=== PATIENT | female | born 1995 | race Caucasian/White ===

== ENCOUNTER 2017-10-21 16:27 | Emergency (ER) | payer MEDICAID ==
[2017-10-21] MEDS ORDERED: ASPIRIN 81 MG CHEWABLE TAB PO ONE (17:13)
[2017-10-21] MEDS ORDERED: IPRATROPIUM/ALBUTEROL 3 ML DEYVIAL IH ONE (17:13)
--- NOTE | 2017-10-21 17:18 | EDPHY ---
H & P Stated Complaint: cough SOB for 3 days-15 weeks Time Seen by Provider: 10/21/17 17:08 HPI/ROS: CHIEF COMPLAINT: Shortness of breath, cough HISTORY OF PRESENT ILLNESS: The patient is a 22-year-old obese homeless female with a history of asthma who comes to the emergency department complaining of shortness of breath and cough. She is wheezing. She has used her albuterol inhaler twice today. She used just before coming. She has been afebrile. Her cough has been nonproductive. She has also 15 weeks . She denies chest pain. No leg pain or swelling. Her friend who is with her states that she was sick a few weeks ago but her symptoms have improved. The patient's symptoms began about 2 weeks ago. Her albuterol has been helping but she is running out. Severity: Moderate Modifying factors: The medications REVIEW OF SYSTEMS: Constitutional: denies: chills, fever, recent illness, recent injury EENTM: denies: blurred vision, double vision, nose congestion Respiratory: See HPI Cardiac: denies: chest pain, irregular heart rate, lightheadedness, palpitations Gastrointestinal/Abdominal: denies: abdominal pain, diarrhea, nausea, vomiting, blood streaked stools Genitourinary: denies: dysuria, frequency, hematuria, pain Musculoskeletal: denies: joint pain, muscle pain Skin: denies: lesions, rash, jaundice, bruising Neurological: denies: headache, numbness, paresthesia, tingling, dizziness, weakness Hematologic/Lymphatic: denies: blood clots, easy bleeding, easy bruising Immunologic/allergic: denies: HIV/AIDS, transplant 10 systems reviewed and negative except as noted EXAM: GENERAL: Well-appearing, well-nourished and in no acute distress. HEAD: Atraumatic, normocephalic. EYES: Pupils equal round and reactive to light, extraocular movements intact, sclera anicteric, conjunctiva are normal. ENT: TMs normal, nares patent, oropharynx clear without exudates. Moist mucous membranes. NECK: Normal range of motion, supple without lymphadenopathy or JVD. LUNGS: Bilateral expiratory wheezes, no rhonchi. HEART: Regular rate and rhythm without murmurs, rubs or gallops. ABDOMEN: Soft, nontender, normoactive bowel sounds. No guarding, no rebound. No masses appreciated. BACK: No CVA tenderness, no spinal tenderness, step-offs or deformities EXTREMITIES: Normal range of motion, no pitting or edema. No clubbing or cyanosis. NEUROLOGICAL: Cranial nerves II through XII grossly intact. Normal speech, normal gait. 5/5 strength, normal movement in all extremities, normal sensation , normal reflexes PSYCH: Normal mood, normal affect. SKIN: Warm, dry, normal turgor, no visible rashes or lesions. Source: Patient Exam Limitations: No limitations - Personal History LMP (Females 10-55): - Medical/Surgical History Hx Asthma: Yes Hx Chronic Respiratory Disease: No Hx Diabetes: No Hx Cardiac Disease: No Hx Renal Disease: No Hx Cirrhosis: No Hx Alcoholism: No Hx HIV/AIDS: No Hx Splenectomy or Spleen Trauma: No Other PMH: asthma - Family History Significant Family History: No pertinent family hx - Social History Smoking Status: Current some day smoker Alcohol Use: Sober Drug Use: None Constitutional: Initial Vital Signs Temperature (C) 36.8 C 10/21/17 16:29 Heart Rate 130 H 10/21/17 16:29 Respiratory Rate 20 10/21/17 16:29 Blood Pressure 137/90 H 10/21/17 16:29 O2 Sat (%) 94 10/21/17 16:29 O2 Delivery Mode Room Air Allergies/Adverse Reactions: No Known Allergies Allergy (Verified 10/21/17 16:29) Home Medications: Medication Instructions Recorded ALBUTEROL SULFATE 10/21/17 Albuterol [Proventil Inhaler] 1 - 2 puffs IH Q4H #1 mdi 10/21/17 Medical Decision Making - Diagnostics Imaging Results: Imaging Impressions Chest X-Ray 10/21/17 17:13 Impression: No definite pneumonia. Imaging: Discussed imaging studies w/ plug cutting machine operator Radiologist ED Course/Re-evaluation: 6:10 p.m. the patient received refused her chest x-ray. Her symptoms have improved with albuterol. I have started her on steroids. I suspect that this is a bronchitis on top for asthma. She is afebrile. We discussed indications for returning and possibly starting antibiotics. She began asking for an ultrasound of her baby because she has not had care up until now. She has an appointment with an OBGYN on Monday. We discussed the fact that we do not do ultrasounds for asymptomatic women. But that the appropriate place for this would be at her OBGYNs office. She was somewhat frustrated by this. Her wheezing has improved and the heart rate decreased to 100. 6:35 p.m. the patient changed her mind will get the x-ray. It is reassuring. No signs of pneumonia. Differential Diagnosis: Partial list of the Differential diagnosis considered include but were not limited to; asthma exacerbation, bronchitis, pneumonia and although unlikely based on the history and physical exam, I also considered PE, dissection, acute coronary disease. I discussed these differential diagnoses and the plan with the patient as well as the usual and expected course. The patient understands that the diagnosis is provisional and that in medicine we are not always correct and that further workup is often warranted. Usual and customary warnings were given. All of the patient's questions were answered. The patient was instructed to return to the emergency department should the symptoms at all worsen or return, otherwise to followup with the physician as we discussed. - Data Points Medications Given: Discontinued Medications Albuterol/Ipratropium (Duoneb) 3 ml IH EDNOW ONE Stop: 10/21/17 17:14 Last Admin: 10/21/17 17:26 Dose: 3 ml Aspirin (Aspirin) 324 mg PO EDNOW ONE Stop: 10/21/17 17:14 Last Admin: 10/21/17 17:26 Dose: 324 mg Departure - Departure Disposition: Home, Routine, Self-Care Clinical Impression: Exacerbation of asthma Qualifiers: Asthma severity: moderate Asthma persistence: unspecified Qualified Code(s): J45.901 - Unspecified asthma with (acute) exacerbation Condition: Fair Instructions: Asthma (ED) Referrals: NONE *PRIMARY CARE P,. [Primary Care Provider] - As per Instructions Mena Magallon DO [Doctor of Osteopathy] - As per Instructions Prescriptions: Albuterol [Proventil Inhaler] 1 - 2 puffs IH Q4H #1 mdi
[2017-10-21 18:59] VITALS: BP 121/80
== END 2017-10-21 19:06 | disposition home or self-care (01) ==
DX: O99.512 Diseases of the respiratory system complicating pregnancy, second trimester (principal); J45.901 Unspecified asthma with (acute) exacerbation; Z3A.15 15 weeks gestation of pregnancy; Z59.0 Homelessness

== ENCOUNTER 2017-11-12 14:29 | Emergency (ER) | payer MEDICAID ==
--- NOTE | 2017-11-12 15:03 | EDPHY ---
H & P Time Seen by Provider: 11/12/17 14:49 HPI/ROS: CHIEF COMPLAINT: "I have a lump on my vagina" HISTORY OF PRESENT ILLNESS: 22-year-old homeless female currently approximately 8 weeks arrives via private vehicle complaining of progressively enlarging left labial lesion for the past 5 days. No prior history of similar. No fever no chills. No nausea no vomiting. Denies: Vaginal bleeding or discharge, abdominal pain, fever, chills, urinary abnormality PRIMARY CARE PROVIDER: [facility] REVIEW OF SYSTEMS: 10 systems reviewed and negative with the exception of the elements mentioned in the history of present illness PAST MEDICAL & SURGICAL HISTORY: currently approximately 8 weeks SOCIAL HISTORY: Homeless PHYSICAL EXAM (Prior to examination, patient consented to physical exam, hands were washed and my usual and customary physical exam procedures followed) 1) GENERAL: Well-developed, well-nourished, alert and oriented. Appears to be in no acute distress. 2) HEAD: Normocephalic, atraumatic 3) HEENT: Pupils equal, round, reactive to light bilaterally. Sclera anicteric. 4) NECK: Full range of motion, no meningeal signs. 5) LUNGS: Clear auscultation bilaterally, no wheezes, no rhonchi, no retractions. 6) HEART: Regular rate and rhythm, no murmur, no heave, no gallop. 7) ABDOMEN: No guarding, no rebound, no focal tenderness, negative McBurney's, negative Lewis's, negative Rovsing's, negative peritoneal sign, 8) MUSCULOSKELETAL: Moving all extremities, no focal areas of tenderness, no obvious trauma. No peripheral edema or discoloration. 9) BACK: No CVA tenderness 10) SKIN: No rash, no petechiae. 11) (with female nurse Jordyn at bedside): Left labial lesion consistent with Bartholin cyst this abscess, tender, nondraining. No vesicles.. DIFFERENTIAL DIAGNOSIS: In no particular order including but not limited to Bartholin cyst, herpes genitalis, Doreen's gangrene Smoking Status: Current some day smoker Constitutional: Initial Vital Signs Temperature (C) 36.4 C 11/12/17 14:32 Heart Rate 100 11/12/17 14:32 Respiratory Rate 14 11/12/17 14:32 Blood Pressure 119/71 11/12/17 14:32 O2 Sat (%) 95 11/12/17 14:32 O2 Delivery Mode Room Air Allergies/Adverse Reactions: No Known Allergies Allergy (Verified 10/21/17 16:29) Home Medications: Medication Instructions Recorded Cephalexin [Keflex] 500 mg PO TID 7 Days cap 11/12/17 MDM/Departure - [facility] Procedures: Procedure: Bartholin cyst drainage. I obtained verbal consent from the patient to drain the abscess who was informed about the possibility of bleeding and pain. The abscess was incised with a 15. Scalp full and a mild amount of purulent drainage was expressed, aspirated and sent to lab, packed with a Word catheter. The patient tolerated the procedure well. The procedure was performed by myself. ED Course/Re-evaluation: Patient's signs and symptoms are consistent with Bartholin gland abscess which was incised and drained primarily in the ER with placement of a Word catheter. Today is Monday. I recommend the patient follow-up with OBGYN in the next 1-2 days. She has no history of recurrent skin infections. Will initiate monotherapy with Keflex. Her tetanus is up-to-date. She feels comfortable being discharged. Doubt systemic disease. She has been informed that she may necessitate marsupialization however this will be at the direction of her OBGYN. I saw this patient independently based on established practice protocols. Care of patient under supervision of secondary supervising physician Dr Isidro Miguel. - Depart Disposition: Home, Routine, Self-Care Clinical Impression: Bartholin cyst Condition: Good Instructions: Bartholin Cyst (ED) Additional Instructions: Return to the ER if you develop fever chills abdominal pain or any other symptoms that concern you Prescriptions: Cephalexin [Keflex] 500 mg PO TID 7 Days cap Referrals: [facility],. [Clinic] - 1-2 days without fail
[2017-11-12 15:58] VITALS: BP 131/80
== END 2017-11-12 15:57 | disposition home or self-care (01) ==
PROC: 0U9 Female Reproductive System, Drainage (ICD-10-PCS; principal; 2017-11-12)
DX: O99.712 Diseases of the skin and subcutaneous tissue complicating pregnancy, second trimester (principal); N75.0 Cyst of Bartholin's gland; Z3A.08 8 weeks gestation of pregnancy; Z59.0 Homelessness; F17.210 Nicotine dependence, cigarettes, uncomplicated

== ENCOUNTER → 2017-11-22 | Outpatient (CLI) | payer MEDICAID | LOC: FIMAGING 13:14 | PROVIDERS: ATTEND Physician Assistant | DX: O09.612 Supervision of young primigravida, second trimester (principal); Z3A.20 20 weeks gestation of pregnancy ==

== ENCOUNTER → 2018-01-16 | Outpatient (CLI) | payer MEDICAID | LOC: FIMAGING 13:42 | PROVIDERS: ATTEND Physician Assistant | DX: O09.612 Supervision of young primigravida, second trimester (principal); Z3A.21 21 weeks gestation of pregnancy; Z59.0 Homelessness ==

== ENCOUNTER 2018-02-18 10:24 | Emergency (ER) | payer MEDICAID ==
--- NOTE | 2018-02-18 10:35 | EDPHY ---
H & P Stated Complaint: Cough, scant hematemesis Time Seen by Provider: 02/18/18 10:35 HPI/ROS: CHIEF COMPLAINT: Cough, scant hematemesis HISTORY OF PRESENT ILLNESS: The patient is currently 33 weeks . She has had a productive cough for the past several days. She was started on amoxicillin several days ago by her primary care provider. Today after eating cookie she had vomiting. She noticed a scant amount of hematemesis with vomiting. She denies any history of melena. She is not anticoagulated. She currently denies any abdominal pain or bleeding. The patient is currently homeless and staying at a [facility]. The patient does not believe that she was tested for influenza. She did not have a chest x-ray prior to starting antibiotics. The patient denies any asymmetric calf pain or swelling. She has been having infectious symptoms of nasal congestion, sore throat and a productive cough for at least the past 3-4 days. REVIEW OF SYSTEMS: A comprehensive 10 point review of systems is otherwise negative aside from elements mentioned in the history of present illness. Source: Patient - Personal History LMP (Females 10-55): EDC: 04/03/18 Current Tetanus Diphtheria and Acellular Pertussis (TDAP): Yes - Medical/Surgical History Hx Asthma: Yes Hx Chronic Respiratory Disease: No Hx Diabetes: No Hx Cardiac Disease: No Hx Renal Disease: No Hx Cirrhosis: No Hx Alcoholism: No Hx HIV/AIDS: No Hx Splenectomy or Spleen Trauma: No Other PMH: asthma - Social History Smoking Status: Former smoker - Physical Exam Exam: General Appearance: Alert, no distress Eyes: Pupils equal and round no pallor or injection ENT, Mouth: Mucous membranes moist Respiratory: There are no retractions, lungs are clear to auscultation Cardiovascular: Regular rate and rhythm Gastrointestinal: Abdomen is soft and nontender, no masses, bowel sounds normal , gravid Neurological: A&O, normal motor function, normal sensory exam, normal cranial nerves Skin: Warm and dry, no rashes Musculoskeletal: Neck is supple nontender Extremities: symmetrical, full range of motion Constitutional: Initial Vital Signs Temperature (C) 36.6 C 02/18/18 10:25 Heart Rate 105 H 02/18/18 10:25 Respiratory Rate 18 02/18/18 10:25 Blood Pressure 117/105 H 02/18/18 10:25 O2 Sat (%) 97 02/18/18 10:25 O2 Delivery Mode Room Air Allergies/Adverse Reactions: No Known Allergies Allergy (Verified 02/18/18 10:28) Home Medications: Medication Instructions Recorded Amoxicillin Trihydrate [Amoxil 250 250 mg PO Q8 02/18/18 mg CAP (*)] Vit27&Calcium/Iron/FA 1 each PO 02/18/18 [] Medical Decision Making ED Course/Re-evaluation: Patient presents to the ED with a upper respiratory infection which has been present for the past several days. The patient was started on antibiotics. The patient is nontoxic well-appearing in the emergency department. The patient was offered a chest x-ray to see if she has evidence of pneumonia however she has declined. She does understand that I cannot fully rule in or rule out the presence of pneumonia without that study. The patient is otherwise well-appearing. She presents to the ED after a scant episode of hematemesis which may been secondary to a small Rosy-Arredondo tear. The patient is nontoxic and well-appearing. No recurrent symptoms of upper lower GI bleeding observed in the emergency department. Patient's influenza test is negative. The patient was re-evaluated at 12:15 p.m.. She has been informed of the workup which is reassuring. Differential Diagnosis: Differential diagnosis considered includes asthma, bronchitis, pneumonia, Rosy-Arredondo tear, upper GI bleed, lower GI bleed - Data Points Laboratory Results: Laboratory Results 02/18/18 11:29 02/18/18 11:29 02/18/18 02/18/18 02/18/18 11:29 11:29 10:45 WBC 11.08 10^3/uL H 10^3/uL (3.80-9.50) RBC 4.56 10^6/uL 10^6/uL (4.18-5.33) Hgb 13.2 g/dL g/dL (12.6-16.3) Hct 39.5 % % (38.0-47.0) MCV 86.6 fL fL (81.5-99.8) MCH 28.9 pg pg (27.9-34.1) MCHC 33.4 g/dL g/dL (32.4-36.7) RDW 13.2 % % (11.5-15.2) Plt Count 303 10^3/uL 10^3/uL (150-400) MPV 9.7 fL fL (8.7-11.7) Neut % (Auto) 68.7 % % (39.3-74.2) Lymph % (Auto) 22.7 % % (15.0-45.0) Rains % (Auto) 6.1 % % (4.5-13.0) Eos % (Auto) 1.3 % % (0.6-7.6) Baso % (Auto) 0.4 % % (0.3-1.7) Nucleat RBC Rel Count 0.0 % % (0.0-0.2) Absolute Neuts (auto) 7.61 10^3/uL H 10^3/uL (1.70-6.50) Absolute Lymphs (auto) 2.52 10^3/uL 10^3/uL (1.00-3.00) Absolute Monos (auto) 0.68 10^3/uL 10^3/uL (0.30-0.80) Absolute Eos (auto) 0.14 10^3/uL 10^3/uL (0.03-0.40) Absolute Basos (auto) 0.04 10^3/uL 10^3/uL (0.02-0.10) Absolute Nucleated RBC 0.00 10^3/uL 10^3/uL (0-0.01) Immature Gran % 0.8 % % (0.0-1.1) Immature Gran # 0.09 10^3/uL 10^3/uL (0.00-0.10) Sodium 135 mEq/L mEq/L (135-145) Potassium 4.0 mEq/L mEq/L (3.5-5.2) Chloride 105 mEq/L mEq/L (97-110) Carbon Dioxide 24 mEq/l mEq/l (22-31) Anion Gap 6 mEq/L mEq/L (6-14) BUN 9 mg/dL mg/dL (7-23) Creatinine 0.7 mg/dL mg/dL (0.6-1.0) Estimated GFR > 60 Glucose 91 mg/dL mg/dL (70-100) Calcium 9.1 mg/dL mg/dL (8.5-10.4) Nasal Influenza A PCR NEGATIVE FOR FLU A (NEGATIVE) Nasal Influenza B PCR NEGATIVE FOR FLU B (NEGATIVE) RSV (PCR) NEGATIVE FOR RSV (NEGATIVE) Medications Given: Discontinued Medications Albuterol (Proventil Neb) 3 ml IH EDNOW ONE Stop: 02/18/18 10:46 Last Admin: 02/18/18 11:15 Dose: 3 ml Departure - Departure Disposition: Home, Routine, Self-Care Clinical Impression: Acute bronchitis Condition: Good Instructions: Acute Bronchitis (ED) Additional Instructions: 1. The laboratory testing in the emergency department today demonstrates no concerning findings. 2. You have no evidence of influenza. 3. Please return to the ED for markedly worsening symptoms, difficulty breathing , black or tarry stools, recurrent vomiting of blood or other concerns. 4. Follow up with her primary care as scheduled. Referrals: Corin Collado PA [Primary Care Provider] - As per Instructions
[2018-02-18] MEDS ORDERED: ALBUTEROL 3 ML DEYVIAL IH ONE (10:45)
[2018-02-18 11:38] LABS: PLATELET COUNT 303 10^3/uL (150-400)
[2018-02-18 12:34] VITALS: BP 118/83
== END 2018-02-18 12:34 | disposition home or self-care (01) ==
DX: J40 Bronchitis, not specified as acute or chronic (principal); O99.513 Diseases of the respiratory system complicating pregnancy, third trimester; Z3A.33 33 weeks gestation of pregnancy; Z79.2 Long term (current) use of antibiotics; Z59.0 Homelessness
CPT/HCPCS: J7613

== ENCOUNTER → 2018-03-06 | Outpatient (CLI) | payer MEDICAID | LOC: FIMAGING 14:01 | PROVIDERS: ATTEND Physician Assistant | DX: O09.613 Supervision of young primigravida, third trimester (principal); Z3A.36 36 weeks gestation of pregnancy ==

== ENCOUNTER 2018-03-24 23:33 | Inpatient (IN) | payer MEDICAID ==
[2018-03-25] MEDS ORDERED: LIDOCAINE 1% 300 MG/30 ML SDV SC PRN (00:22)
[2018-03-25] MEDS ORDERED: IBUPROFEN 600 MG TAB PO PRN (00:22)
[2018-03-25] MEDS ORDERED: LR 1,000 ML IV PRN (00:22)
[2018-03-25] MEDS ORDERED: EPSOM SALT 454 GM TP PRN (00:22)
[2018-03-25] MEDS ORDERED: OXYTOCIN/RINGERS LACTATE 1,000 ML IV PRN (00:22)
[2018-03-25] MEDS ORDERED: OLIVE OIL 118 ML BTL MISC PRN (00:22)
[2018-03-25] MEDS ORDERED: MISOPROSTOL 200 MCG TAB PO PRN (00:22)
[2018-03-25] MEDS ORDERED: AMMONIA AROMATIC 1 EACH AMP IH PRN (00:22)
[2018-03-25] MEDS ORDERED: TERBUTALINE SULFATE 1 MG/ML VIAL IV PRN (00:22)
--- NOTE | 2018-03-25 00:22 | PDGENHP ---
History and Physical History and Physical: Care: [facility] HPI: Cee Cervantes is [id number] with IUP @ 38-5 weeks that presents to L&D with complaints of SROM @ 2300. She reports irregular contractions. denies any VB. She reports +FM. She reports getting care at [facility], but desires to have baby here at [facility]. She denies any significant past medical hx other than asthma- states she does not use any meds. She denies any drug, tobacco, or alcohol use. I was able to speak with physician from [facility]- who verbally reported medical hx including +UDS of methamphetamines. awaiting records. EDC: 04/03/18 which is based on Ultrasound at 21 weeks. Her is complicated by: homeless, asthma, +MJ, obesity, h/o depression - no meds, +methamphetamine in 10/2017-negative repeat testing 11/2017, labial cyst drained Review of Systems: Constitutional: Denies any fever, chills, or fatigue HEENT: denies any visual changes, difficulty swallowing, hearing loss Cardiovascular: Denies any chest pain, palpitations, leg swelling Respiratory: denies any cough, wheezing, or shortness of breathe GI: Denies any nausea, vomiting, diarrhea, constipation : denies any dysuria, urgency, frequency, vaginal bleeding Musculoskeletal: denies any muscle or bone pain Skin: denies any rashes Neuro: denies any headache, seizures, lightheadedness, dizziness, or loss of consciousness Psychiatric: denies any depression, anxiety, or SI/HI thoughts HISTORY: Previous OB history: G1 Past medical history: obesity, asthma, h/o depression (no meds) Past surgical history: denies any Social: Denies any alcohol, tobacco, or drug use. partner, Robin; she is homeless- currently living in with a couple friends. Family history: Not relevant Medications: PNV, proair PRN Allergies (list reaction): NKDA LABS: Rh:O+ ABS: Neg Rubella: unknown HbsAg: NR HIV: NR VDRL: NR 1hr: 107 GC: Neg Chlamydia: Neg GBS: negative PHYSICAL EXAM: Constitutional: WN, A&Ox3, obese HEENT: normocephalic atraumatic, supple Skin: Warm, dry, intact Heart: RRR, no murmur Chest: CTA-B Abdomen: Soft, nontender, gravid SVE: 2/th/high Extremities: no edema, negative homans sign Neuro: grossly normal Psych: normal affect assessment: FHT baseline 135 +accels, no decels, moderate variability Contractions: toco irregular Assessment: 1) [id number] with IUP@38-5wks 2) PROM 3) GBS negative 4) Cat 1 FHR tracing 5) rubella unknown Plan: 1) Admit to L&D 2) cytotec 50mcg buccally q 4 3) pain management PRN 4) UDS consented- pt agrees Today's visit was approximately 45 min, of which >50% of visit 30 min, was spent face to face with pt on direct counseling/coordination of care.
[2018-03-25 00:35] LABS: PLATELET COUNT 334 10^3/uL (150-400)
--- NOTE | 2018-03-25 01:57 | OBPROG ---
Labor Progress Note Assessment/Plan: Assessment: [id number] with IUP@ 38-5wks PROM @2300, clear GBS Negative Cat 1 FHR tracing Plan: cytotec 50mcg buccally q 4hr reassess 2-4hr/prn pain management PRN anticipate 03/25/18 01:53 Subjective/Intrapartum Course: 03/25/18 01:57 pt doing well, she reports mild pain with contractions. she is resting and playing on her phone with each contraction. FOB @ BS. She consents/agrees to cytotec for augmentation. Desires LACEY when pain increases. Objective: 03/25/18 00:25 Patient ABO/Rh O POSITIVE 03/25/18 00:25 - Contraction Pattern Assessment Current Contraction Pattern: Irregular - FHR Assessment Diaz FHR (bpm): 130 FHR Pattern Variability: Moderate FHR Category: 1 Oxytocin Orders Assessment - Pre-Induction/Augmentation Assessment Gestational Age: 38 week(s) and 4 day(s) ICD10 Worksheet Patient Problems: Problems Problem Status Onset Asthma Acute Homeless Acute Obese Acute Supervision of normal first in third trimester Acute - ICD10 Problem Qualifiers (1) Homeless (2) Asthma (3) Obese (4) Supervision of normal first in third trimester
[2018-03-25] MEDS ORDERED: hydrOXYzine HCL 50 MG TAB PO PRN (02:05)
[2018-03-25] MEDS: MISOPROSTOL 50 MCG CAP PO SCH ×5 (02:13→23:30)
[2018-03-25] MEDS ORDERED: BUPIVACAINE 0.25% 10 ML SDV ONE (03:09)
[2018-03-25] MEDS ORDERED: PHENYLEPHRINE HCL 100 MCG/ML SYR ONE (03:09)
[2018-03-25] MEDS ORDERED: fentaNYL 2MCG/ML/BUP 0.1% RTU 100 ML BAG EP ONE (03:09)
[2018-03-25] MEDS ORDERED: LIDOCAINE 1% 2 ML INJ ONE (03:27)
[2018-03-25] MEDS ORDERED: METOCLOPRAMIDE 10 MG/2 ML VIAL IVP PRN (03:52)
[2018-03-25] MEDS ORDERED: NALOXONE HCL 0.4 MG/ML INJ IVP PRN (03:52)
[2018-03-25] MEDS ORDERED: ONDANSETRON 4 MG/2 ML VIAL IVP PRN (03:52)
[2018-03-25] MEDS ORDERED: PHENYLEPHRINE HCL 100 MCG/ML SYR IVP PRN (03:52)
--- NOTE | 2018-03-25 03:52 | PREANESOB ---
Obstetric Pre-Anesthesia Info - General Info Proposed Procedure: LACEY : 1 Para: 0 MATTY: 04/03/18 Gestational Age: 38 week(s) and 4 day(s) - Info Status: Full Term Monitors: External FHR Pattern: Reassuring - Labor Status PIH: No Magnesium Sulfate in Use: No Indications for Labor Analgesia: Pain Control Labor Epidural: Proposed Anesthesia Allergies/Adverse Reactions: Allergy/AdvReac Type Severity Reaction Status Date / Time No Known Allergies Allergy Verified 02/18/18 10:28 Home Medications: Medication Instructions Recorded Amoxicillin Trihydrate [Amoxil 250 250 mg PO Q8 02/18/18 mg CAP (*)] Vit27&Calcium/Iron/FA 1 each PO 02/18/18 [] Visit Medications: Generic Name Dose Route Start Last Admin Trade Name Freq PRN Reason Stop Dose Admin Ammonia (Aromatic Spirit) 1 each 03/25/18 00:22 Ammonia Aromatic IH 04/04/18 00:21 ONCE PRN Fainting Hydroxyzine HCl 50 - 100 mg 03/25/18 02:05 03/25/18 02:24 Hydroxyzine Hcl PO 09/21/18 02:04 100 mg Q6HRS PRN Administration Sleep/Insomnia Lactated Ringer's 1,000 mls @ 0 mls/hr 03/25/18 00:22 Lr IV 03/26/18 00:21 PRN PRN SEE PROTOCOL CONDITIONS Protocol Per Protocol Oxytocin/Lactated Ringer's 1,000 mls @ 999 mls/hr 03/25/18 00:22 Pitocin 20 Units/Lr (Premix) IV PRN PRN Post bleeding Ibuprofen 600 mg 03/25/18 00:22 Motrin PO ONCE PRN post , pain Lidocaine HCl 300 mg 03/25/18 00:22 Lidocaine Hcl 1% SC 09/21/18 00:21 ONCE PRN episiotomy Magnesium Sulfate 454 gm 03/25/18 00:22 Epsom Salt TP 09/21/18 00:21 Q1H PRN perineal discomfort Misoprostol 800 - 1,000 mcg 03/25/18 00:22 Cytotec PO 09/21/18 00:21 ONCE PRN Vaginal Atony/Bleeding Misoprostol 50 mcg 03/25/18 02:00 03/25/18 02:13 Cytotec PO 09/21/18 01:59 50 mcg Q4 DEUCE Administration [place] Oil 118 ml 03/25/18 00:22 Sweet Oil MISC 09/21/18 00:21 ONCE PRN perineal massage Terbutaline Sulfate 0.25 mg 03/25/18 00:22 Brethine IV 09/21/18 00:21 ONCE PRN Tachysystole Discontinued Medications Generic Name Dose Route Start Last Admin Trade Name Freq PRN Reason Stop Dose Admin Bupivacaine HCl Confirm 03/25/18 03:09 Sensorcaine 0.25% Sdv Administered 03/25/18 03:10 Dose 10 ml .ROUTE .STK-MED ONE Fentanyl/Bupivacaine HCl Confirm 03/25/18 03:09 Fentanyl/Bupivacaine/Ns 2 Mcg/Ml 0.1% (Premix Administered 03/25/18 03:10 Dose 100 ml EP .STK-MED ONE Lidocaine HCl Confirm 03/25/18 03:27 Lidocaine Hcl 1% Administered 03/25/18 03:28 Dose 2 ml .ROUTE .STK-MED ONE Phenylephrine HCl Confirm 03/25/18 03:09 Neosynephrine Administered 03/25/18 03:10 Dose 1,000 mcg .ROUTE .STK-MED ONE - Anesthesia History Response to Local Anesthetics: Not Applicable Anesthesia & Operative History: No Prior Problems Family Anesthesia History: Not Applicable - Vital Signs Height/Weight (Nursing): Height 160.02 cm Weight 117.027 kg - Focused Exam Neck exam: FROM Mallampati Score: Class 2 Mouth exam: normal dental/mouth exam Pulmonary: no respiratory distress Cardiovascular: regular rate and rhythym Labs: 03/25/18 00:25 Patient ABO/Rh O POSITIVE 03/25/18 00:25 - Plan Consent Signed and on Chart: Yes Patient/Guardian Understands and Agrees to Plan: Yes Urgent/Emergent Case: Curtis still completed preop but documented later for safe timely pt care
[2018-03-25] MEDS ORDERED: LR 500 ML IV SCH (04:00)
[2018-03-25] MEDS ORDERED: OXYTOCIN 10 UNIT/ML VIAL ONE (04:41)
[2018-03-25] MEDS ORDERED: AMMONIA AROMATIC 1 EACH AMP IH ONE (04:41)
[2018-03-25] MEDS ORDERED: LIDOCAINE 1% 300 MG/30 ML SDV ONE (04:41)
[2018-03-25] MEDS ORDERED: TERBUTALINE SULFATE 1 MG/ML VIAL ONE (04:41)
[2018-03-25] MEDS ORDERED: OLIVE OIL 118 ML BTL ONE (04:41)
[2018-03-25] MEDS ORDERED: MISOPROSTOL 200 MCG TAB ONE (04:42)
[2018-03-25] MEDS ORDERED: HYDROCORTISONE 0.5% CREAM TP PRN (05:40)
[2018-03-25] MEDS ORDERED: SIMETHICONE 80 MG TAB CHEW PO PRN (05:40)
--- NOTE | 2018-03-25 05:40 | OBDEL ---
Info Type: Vaginal Presentation at Delivery: Vertex L&D Analgesia/Anesthesia Type: Epidural GBS+: No Intrapartum Medications: Generic Name Dose Route Start Last Admin Trade Name Freq PRN Reason Stop Dose Admin Hydroxyzine HCl 50 - 100 mg 03/25/18 02:05 03/25/18 02:24 Hydroxyzine Hcl PO 09/21/18 02:04 100 mg Q6HRS PRN Administration Sleep/Insomnia Misoprostol 50 mcg 03/25/18 02:00 03/25/18 02:13 Cytotec PO 09/21/18 01:59 50 mcg Q4 DEUCE Administration - Hospital Course Intrapartum: 03/25/18 01:57 pt doing well, she reports mild pain with contractions. she is resting and playing on her phone with each contraction. FOB @ [employer]. She consents/agrees to cytotec for augmentation. Desires LACEY when pain increases. Indications for Delivery: SROM Vaginal Delivery - Delivery Provider Delivery Physician/CNM: Vanda Kong - Labor and Delivery Onset of Contractions Date: 03/24/18 Onset of Contractions Time: 23:15 Onset of Contractions Type: Augmented Rupture of Membranes Date: 03/24/18 Rupture of Membranes Time: 23:00 Rupture of Membranes Type: Spontaneous Amniotic Fluid Color: Clear Dilation Complete Date: 03/25/18 Dilation Complete Time: 04:35 Placenta Delivery Date: 03/25/18 Placenta Delivery Time: 05:07 Total Hours of Labor: 5 Laceration: 1st Degree Repair: 3-0, Vicryl Vaginal Sponge Count Correct: Yes Vaginal Needle Count Correct: Yes Vaginal Sweep Performed: Yes EBL: 300 Delivery Events: Nuchal Cord - Medications Labor Augmentation/Induction Methods Used: Misoprostol [place] Data MATTY: 04/03/18 Gestational Age: 38 week(s) and 5 day(s) Diaz Delivery Date: 03/25/18 Delivery Time: 05:00 Sex of : Male Score (1 Min): 8 Score (5 Min): 9 ICD10 Worksheet Patient Problems: Problems Problem Status Onset Asthma Acute First degree perineal laceration during delivery Acute Homeless Acute Obese Acute (spontaneous vaginal delivery) Acute Supervision of normal first in third trimester Acute - ICD10 Problem Qualifiers (1) Homeless (2) Asthma (3) Obese (4) Supervision of normal first in third trimester (5) (spontaneous vaginal delivery) (6) First degree perineal laceration during delivery
--- NOTE | 2018-03-25 15:06 | ASMTCMCOM ---
CM Note CM Note Notes: CM called by [facility] staff to assess MOC for safety purposes. Spoke with MOC who has difficulty speaking to how the financial needs of the family can be met. She is currently living in a recreational vehicle here in [place] with FOC. They are staying with a friend. Reportedly another person lives there as well. Families are out of state. She has declined [facility] and [facility] [place] program in the past. 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 Has been engaged with [facility] and left that plan as " she felt it was all negative and they kept telling here her baby would be taken". She has no crib or care seat presently. MOC toxicology screen negative on admission. Report filed with CPS over general concerns for the ability of MOC and FOC to provide safe environment. Spoke with Emperatriz at CPS and a Measuring Machine Tender will be here to assess the situation in the am. A note has been placed on the chart that CPS must see and evaluate prior to discharging the to the custody of the parents . If any attempt is made to leave AMA with the the staff is to call [employer] [place] [employer]. Plan: TBD Date Signed: 03/25/2018 03:06 PM Electronically Signed By:Fadia Rawls RN
[2018-03-25] MEDS: IBUPROFEN 600 MG TAB PO PRN ×2 (17:17→23:00)
[2018-03-25] MEDS: DOCUSATE SODIUM 100 MG CAP PO PRN (23:00)
[2018-03-26] MEDS: MISOPROSTOL 50 MCG CAP PO SCH ×3 (02:25→13:49)
[2018-03-26] MEDS: IBUPROFEN 600 MG TAB PO PRN ×3 (06:25→18:48)
--- NOTE | 2018-03-26 09:01 | ASMTCMCOM ---
CM Note CM Note Notes: Spoke with CPS [place] Inspector Repairer, Gabriel #[phone]. The report has been received and he is on his way to the hospital to assess. CPS will likely intervene and will take at least two hours for the assessment to be completed. CPS will touch base with CM after. The above has been relayed to primary RN, Annita. CM will follow. Date Signed: 03/26/2018 09:00 AM Electronically Signed By:Marlin Love RN
[2018-03-26] MEDS: DOCUSATE SODIUM 100 MG CAP PO PRN (09:17)
--- NOTE | 2018-03-26 09:51 | OBPP ---
Progress Note Assessment/Plan: Assessment: 1. PP day 1 2. Breast feeding well. Plan: 1. Plan d/c home tomorrow 2. CPS eval today. 03/26/18 09:49 Subjective/ Course: 03/26/18 09:50 Pt is feeling well, ambulating independently, breast feeding well. Pain well controlled. Voiding and passing flatus. Objective: 03/25/18 00:25 Patient ABO/Rh O POSITIVE 03/25/18 00:25 Temp Pulse Resp BP Pulse Ox 36.2 C 83 12 121/74 H 95 03/26/18 08:27 03/26/18 08:27 03/26/18 08:27 03/26/18 08:27 03/26/18 08:27 VSS Uterine Position/Fundal Height: At Umbilicus Uterine Tone: Firm
--- NOTE | 2018-03-26 14:04 | POSTANESTH ---
Post Anesthetic Evaluation Cardiovascular Status: Normal, Stable Respiratory Status: Normal, Stable Level of Consciousness/Mental Status: Can Participate in Eval Pain Control: Adequate, Prn Tx Ordered Nausea/Vomiting Control: Adequate, Prn Tx Ordered Complications Possibly Related to Anesthesia: None Noted
[2018-03-27] MEDS: IBUPROFEN 600 MG TAB PO PRN ×4 (00:51→18:18)
[2018-03-27] MEDS: DOCUSATE SODIUM 100 MG CAP PO PRN (08:51)
--- NOTE | 2018-03-27 14:37 | ASMTCMCOM ---
CM Note CM Note Notes: Application for "[facility]" sent via fax. Spoke with Gabriel from CPS today. Decision regarding custody of infant contingent on results of meconium. Spoke with the patient's nurse who strongly recommends MOC stay one more day to reinforce feeding protocols. "[facility]" able to provide family with essentials for care of . Will provide community resources . Patient was to have appointment at [facility] tomorrow. Will need to be rescheduled. CM has reached out to clinic. Awaiting return call. CM to follow. Plan: TBD Date Signed: 03/27/2018 02:37 PM Electronically Signed By:Fadia Rawls RN
--- NOTE | 2018-03-27 16:19 | ASMTCMCOM ---
CM Note CM Note Notes: Patient and staying one more night. Appointment at [facility] changed to at 11:05 am. Patient notified of appointment change. CM will provide bus tickets for transportation to [facility] if needed. Plan: TBD Date Signed: 03/27/2018 04:18 PM Electronically Signed By:Fadia Rawls RN
--- NOTE | 2018-03-27 17:18 | OBPP ---
Progress Note Assessment/Plan: Assessment: Plan: 03/27/18 17:16 PPD #2 Psycho/social issues being monitored by her correctional counselor/case manager difficulties P: Continue providing support for Add Tylenol in to pain control regimen Discharge home tomorrow Subjective/ Course: 03/26/18 09:50 Pt is feeling well, ambulating independently, breast feeding well. Pain well controlled. Voiding and passing flatus. 03/27/18 17:14 Pt has been having some issues with and needing some additional support. Reports ibuprofen wearing off prior to the 6 hours. Not currently taking tylenol. Bleeding minimal. Ambulating without difficulty Objective: 03/25/18 00:25 Patient ABO/Rh O POSITIVE 03/25/18 00:25 Temp Pulse Resp BP Pulse Ox 36.1 C 69 17 117/80 92 03/27/18 08:00 03/27/18 08:00 03/27/18 08:00 03/27/18 08:00 03/27/18 08:00 Nipples intact bilaterally, breasts soft Uterine Position/Fundal Height: Umbilicus -1 Uterine Tone: Firm
[2018-03-27] MEDS: ACETAMINOPHEN 325 MG TAB PO SCH (18:17)
[2018-03-28] MEDS: ACETAMINOPHEN 325 MG TAB PO SCH ×5 (00:14→12:07)
[2018-03-28] MEDS: IBUPROFEN 600 MG TAB PO PRN ×3 (00:15→12:07)
[2018-03-28] MEDS: DOCUSATE SODIUM 100 MG CAP PO PRN (09:37)
--- NOTE | 2018-03-28 10:53 | OBGCSDC ---
General Delivery Information - General Info : 1 Para: 1 Abortions: 0 Type: Vaginal L&D Analgesia/Anesthesia Type: Epidural, Local Admission Date: 03/25/18 Labs: Patient ABO/Rh O POSITIVE 03/25/18 00:25 Hct 43.8 % (38.0-47.0) 03/25/18 00:25 - Hospital Course Intrapartum: 03/25/18 01:57 pt doing well, she reports mild pain with contractions. she is resting and playing on her phone with each contraction. FOB @ [facility]. She consents/agrees to cytotec for augmentation. Desires LACEY when pain increases. : 03/26/18 09:50 Pt is feeling well, ambulating independently, breast feeding well. Pain well controlled. Voiding and passing flatus. 03/27/18 17:14 Pt has been having some issues with and needing some additional support. Reports ibuprofen wearing off prior to the 6 hours. Not currently taking tylenol. Bleeding minimal. Ambulating without difficulty 03/28/18 10:30 ) Pt doing well, reports min pain and bleeding. she is ambulating and voiding without difficulty. She is . She desires discharge home today. Social Service is involved and will be meeting with Cee and her significant other regarding whether baby will be discharged with her. O) VSS, afebrile constitutional: WNWF, A&Ox3 HEENT: normocephalic, atraumatic, supple Heart: RRR, No murmur Chest: CTA-B Abdomen: Soft, nontender Uterus: Firm at U-2 Lochia: Minimal rubra Perineum: Intact, healing well Extremities: Trace edema, and negative Tomas's sign Neuro: Grossly normal A) 23 year-old P1 S/P PPD#2 P) Discharge home today Continue Pelvic rest x6wks Discussed danger signs (infection, preeclampsia, depression, heavy bleeding, etc) She plans to follow up with [facility] later this week Vaginal - Delivery Provider Delivery Physician/CNM: Vanda Kong - Diagnosis Labor: Augmented Rupture of Membranes Type: Spontaneous Amniotic Fluid Color: Clear Laceration: 1st Degree Repair: 3-0, Vicryl Delivery Events: Nuchal Cord - Delivery EBL: 300 Data MATTY: 04/03/18 Gestational Age: 39 week(s) and 1 day(s) Diaz Delivery Date: 03/25/18 Delivery Time: 05:00 Sex of Infant: Male Jarales Weight (gm): 3012 g Score (1 Min): 8 Score (5 Min): 9
[2018-03-28 11:02] VITALS: BP 113/76
--- NOTE | 2018-03-28 16:02 | ASMTCMCOM ---
CM Note CM Note Notes: Spoke with Director of CM and also patient's primary RN, Martha. Gabriel with CPS still involved in case #[phone]. The plan is to keep the baby until the Meconium levels are back, hopefully by tomorrow. CPS will still continue their case and plan to have a discussion with the [facility] to see if any more information on patient and partner can be obtained. RN aware we are keeping baby. Gabriel will be here on at 1300 to meet with family again. ALFREDO also made a referral to [facility] with [facility] #[phone], she plans on coming by on to meet with mother. CM will be available for more assistance. Date Signed: 03/28/2018 04:01 PM Electronically Signed By:Marlin Love RN
== END 2018-03-28 14:30 | disposition home or self-care (01) | DRG 560 ==
LOC: FLD 23:33 → OBSVTOIN 03-25 00:23 → FOB 03-25 10:15
PROVIDERS: ADMIT Advanced Practice Midwife; ATTEND Advanced Practice Midwife
DX: O69.9XX0 Labor and delivery complicated by cord complication, unspecified, not applicable or unspecified (principal); O70.0 First degree perineal laceration during delivery; O99.324 Drug use complicating childbirth; F15.90 Other stimulant use, unspecified, uncomplicated; O99.513 Diseases of the respiratory system complicating pregnancy, third trimester; J45.909 Unspecified asthma, uncomplicated; Z59.0 Homelessness; Z3A.39 39 weeks gestation of pregnancy; Z37.0 Single live birth
CPT/HCPCS: 80307; G0480; J2370; J2590; J3105

== ENCOUNTER 2018-04-11 19:47 | Inpatient (IN) | payer MEDICAID, OTHER ==
--- NOTE | 2018-04-11 19:50 | EDPHY ---
H & P Time Seen by Provider: 04/11/18 19:49 HPI/ROS: CHIEF COMPLAINT: Homicidal ideation toward her 3-week-old child HISTORY OF PRESENT ILLNESS: 23-year-old female arrives via ambulance on an M- 0.5 hold after she endorsed homicidal ideation with plan to hang her 3-week-old child and/or shake him to . She denies attempt at homicide. She denies street drug use. Denies tobacco abuse. Denies self-injurious behavior. Denies hallucination. PRIMARY CARE PROVIDER: REVIEW OF SYSTEMS: 10 systems reviewed and negative with the exception of the elements mentioned in the history of present illness PAST MEDICAL & SURGICAL HISTORY: 3 weeks SOCIAL HISTORY: denies acute alcohol or drug or tobacco use. PHYSICAL EXAM (Prior to examination, patient consented to physical exam, hands were washed and my usual and customary physical exam procedures followed) 1) GENERAL: Well-developed, well-nourished, alert and oriented. Appears to be in no acute distress. Withdrawn, flat affect 2) HEAD: Normocephalic, atraumatic 3) HEENT: Pupils equal, round, reactive to light bilaterally. Sclera anicteric. 4) NECK: Full range of motion, no meningeal signs. 5) LUNGS: Clear auscultation bilaterally, no wheezes, no rhonchi, no retractions. 6) HEART: Regular rate and rhythm, no murmur, no heave, no gallop. 7) ABDOMEN: No guarding, no rebound, no focal tenderness, negative McBurney's, negative Lewis's, negative Rovsing's, negative peritoneal sign, 8) MUSCULOSKELETAL: Moving all extremities, no focal areas of tenderness, no obvious trauma. No peripheral edema or discoloration. 9) BACK: No CVA tenderness, no midline vertebral tenderness, no fluctuance, no step-off, no obvious trauma, no visual or palpable abnormality. 10) SKIN: No rash, no petechiae. 11) Psychiatric: Patient is oriented X 3, there is no agitation. Withdrawn, flat affect DIFFERENTIAL DIAGNOSIS: In no particular order including but not limited to suicidal ideation, homicidal ideation, - Medical/Surgical History Hx Asthma: Yes Hx Chronic Respiratory Disease: No Hx Diabetes: No Hx Cardiac Disease: No Hx Renal Disease: No Hx Cirrhosis: No Hx Alcoholism: No Hx HIV/AIDS: No Hx Splenectomy or Spleen Trauma: No Other PMH: asthma - Social History Smoking Status: Former smoker Constitutional: Initial Vital Signs Temperature (C) 36.3 C 04/11/18 19:52 Heart Rate 70 04/11/18 19:52 Blood Pressure 130/90 H 04/11/18 19:52 O2 Sat (%) 96 04/11/18 19:52 O2 Delivery Mode Room Air Allergies/Adverse Reactions: No Known Allergies Allergy (Verified 04/11/18 20:06) Home Medications: Medication Instructions Recorded Vit27&Calcium/Iron/FA 1 each PO 02/18/18 [] Acetaminophen [Tylenol 325mg (*)] 650 mg PO Q4HRS tab 03/28/18 Docusate Sodium [Colace 100 MG (*)] 100 mg PO BID PRN #30 cap 03/28/18 Ibuprofen [Motrin (*)] 600 mg PO Q6HRS PRN #40 tab 03/28/18 Citalopram 04/11/18 Medical Decision Making ED Course/Re-evaluation: 8:13 p.m.: Patient is on a pre-hospital M-0.5 hold. Will obtain diagnostic studies and contact mental health utility worker forge. Per EMS the 3-week-old child is currently in custody of family members. Care of patient under supervision of secondary supervising physician Dr Long. 11:07 p.m.: Patient has been accepted to [address] inpatient psychiatry accepting physician Dr. Jason Ruiz. EMTALA paperwork completed. - Data Points Laboratory Results: Laboratory Results 04/11/18 20:15 04/11/18 21:01 04/11/18 04/11/18 04/11/18 21:01 20:30 20:15 WBC RBC Hgb Hct MCV MCH MCHC RDW Plt Count MPV Neut % (Auto) Lymph % (Auto) Kimball % (Auto) Eos % (Auto) Baso % (Auto) Nucleat RBC Rel Count Absolute Neuts (auto) Absolute Lymphs (auto) Absolute Monos (auto) Absolute Eos (auto) Absolute Basos (auto) Absolute Nucleated RBC Immature Gran % Immature Gran # Sodium 131 mEq/L L mEq/L (135-145) Potassium 4.2 mEq/L mEq/L (3.5-5.2) Chloride 99 mEq/L mEq/L (97-110) Carbon Dioxide 26 mEq/l mEq/l (22-31) Anion Gap 6 mEq/L mEq/L (6-14) BUN 24 mg/dL H mg/dL (7-23) Creatinine 0.9 mg/dL mg/dL (0.6-1.0) Estimated GFR > 60 Glucose 91 mg/dL mg/dL (70-100) Calcium 9.4 mg/dL mg/dL (8.5-10.4) Beta HCG, Qual NEGATIVE Specimen Hemolysis Salicylates Urine Opiates Screen NEGATIVE (NEGATIVE) Acetaminophen Urine Barbiturates NEGATIVE (NEGATIVE) Ur Phencyclidine Scrn NEGATIVE (NEGATIVE) Ur Amphetamine Screen NEGATIVE (NEGATIVE) U Benzodiazepines Scrn NEGATIVE (NEGATIVE) Urine Cocaine Screen NEGATIVE (NEGATIVE) U Marijuana (THC) Screen NON-NEGATIVE H (NEGATIVE) Ethyl Alcohol 04/11/18 04/11/18 20:15 20:15 WBC 8.26 10^3/uL 10^3/uL (3.80-9.50) RBC 4.86 10^6/uL 10^6/uL (4.18-5.33) Hgb 13.6 g/dL g/dL (12.6-16.3) Hct 41.9 % % (38.0-47.0) MCV 86.2 fL fL (81.5-99.8) MCH 28.0 pg pg (27.9-34.1) MCHC 32.5 g/dL g/dL (32.4-36.7) RDW 13.4 % % (11.5-15.2) Plt Count 474 10^3/uL H 10^3/uL (150-400) MPV 9.5 fL fL (8.7-11.7) Neut % (Auto) 41.4 % % (39.3-74.2) Lymph % (Auto) 46.9 % H % (15.0-45.0) Kimball % (Auto) 5.3 % % (4.5-13.0) Eos % (Auto) 5.6 % % (0.6-7.6) Baso % (Auto) 0.6 % % (0.3-1.7) Nucleat RBC Rel Count 0.0 % % (0.0-0.2) Absolute Neuts (auto) 3.42 10^3/uL 10^3/uL (1.70-6.50) Absolute Lymphs (auto) 3.87 10^3/uL H 10^3/uL (1.00-3.00) Absolute Monos (auto) 0.44 10^3/uL 10^3/uL (0.30-0.80) Absolute Eos (auto) 0.46 10^3/uL H 10^3/uL (0.03-0.40) Absolute Basos (auto) 0.05 10^3/uL 10^3/uL (0.02-0.10) Absolute Nucleated RBC 0.00 10^3/uL 10^3/uL (0-0.01) Immature Gran % 0.2 % % (0.0-1.1) Immature Gran # 0.02 10^3/uL 10^3/uL (0.00-0.10) Sodium TNP Potassium TNP Chloride TNP Carbon Dioxide TNP Anion Gap TNP BUN TNP Creatinine TNP Estimated GFR TNP Glucose TNP Calcium TNP Beta HCG, Qual Specimen Hemolysis 346 Salicylates TNP Urine Opiates Screen Acetaminophen TNP Urine Barbiturates Ur Phencyclidine Scrn Ur Amphetamine Screen U Benzodiazepines Scrn Urine Cocaine Screen U Marijuana (THC) Screen Ethyl Alcohol TNP Departure - Departure Disposition: [facility] IP Clinical Impression: Homicidal ideation Condition: Fair
[2018-04-11 20:27] LABS: PLATELET COUNT 474 10^3/uL (150-400)
[2018-04-12] MEDS ORDERED: MAG HYDROX/AL HYDROX/SIMETH 30 ML UDCUP PO PRN (00:31)
[2018-04-12] MEDS ORDERED: OLANZapine DISINTEGR 5 MG TAB PO PRN (00:31)
[2018-04-12] MEDS ORDERED: ACETAMINOPHEN 325 MG TAB PO PRN (00:31)
[2018-04-12] MEDS ORDERED: MAGNESIUM HYDROXIDE 30 ML UDCUP PO PRN (00:31)
[2018-04-12] MEDS ORDERED: NICOTINE POLACRILEX 2 MG GUM B PRN (00:31)
[2018-04-12] MEDS ORDERED: LORazepam 0.5 MG TAB PO PRN (00:31)
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
--- NOTE | 2018-04-12 00:39 | ASMTTCLDSP ---
TLC Discharge Disposition Disposition: Answers: Admit Discharge Concerns/Recommendations: Notes: In consultation with [facility] ED physician,Dr Long and on-call psychiatrist,Dr Ruiz , both concurred that Pt does appear to meet 27-65 criteria requiring psychiatric hospitalization as Pt does appear to be an imminent risk of harm to others due to a mental illness condition. Pt was read the Patient Rights and Responsibilities Statement on 04/12/2018 at 22:00, original placed in chart and copy given to pt. Was patient given the Answers: Yes Inpatient Behavioral Health Prohibited Belongings List while in the ED? For inpatient Dr Ruiz admission, the following psychiatrist agreed to accept patient for admission to Behavioral Health ([facility]): Hold initiated by: Answers: ED Physician Date Signed: 04/12/2018 12:38 AM Electronically Signed By:Rizwana Munson
[2018-04-12] MEDS: IBUPROFEN 600 MG TAB PO PRN ×2 (07:52→17:36)
--- NOTE | 2018-04-12 07:52 | ASMTBHMTP ---
Master Treatment Plan Master Treatment Plan Answers: Depressed Mood without for: Suicidal Ideation Date: 04/12/2018 Diagnosis on Admission: Major Depressive Disorder, single episode, severe 296.23 (F32.2), with eufemia- onset Expected length of stay: 3-5 Reason for admission: Notes: Pt is a 23 y/o woman who gave to her first child 3 weeks ago. She self-reported homicidal ideation to someone she was seeing at [facility] and was placed on a M-0.5 Involuntary Transportation hold and sent to [facility]. Per M-0.5, "pt is approximately 3 weeks post-, and endorses recent thoughts of wanting to harm her son. Pt reports yesterday she thought of a plan to bang her son against a wall or shake him until he stopped crying. Pt has a hx of depression and 1 suicide attempt during adolescence. Pt reports HI towards son worsened in the past week subsequent to starting Citalopram". Once arriving at the ED she was evaluated by the ED physician and placed on an M1 for HI. Patient's stated presenting problems: Notes: "I was kind of forced to (being admitted) due to my thoughts of hurting my son. I would never do that". Patient's goals for treatment: Notes: "I don't really know right now because I don't think I need treatment". Patient's strengths: Notes: "My strength is who I am". Identify supports outside of hospital: Notes: "My ". Discharge criteria: Notes: Intrusive thoughts will resolve and ct. will have a plan to safely manage recurrent HI. Initial disposition plan/considerations: Notes: Maintain good hygiene. Participate in groups and unit activities. Master Treatment Plan Required Signatures Psychiatrist signature: Answers: Psychiatrist: RN on-shift signature: Answers: RN: Patient signature: Answers: Patient: Date Signed: 04/12/2018 07:51 AM Electronically Signed By:Ev Serrato
--- NOTE | 2018-04-12 08:11 | ASMTCMCOM ---
CM Note CM Note Notes: CC met with ct. to develop MTP. Ct. presented as emotional and somewhat overwhelmed. She was tearful during the meeting. Hygiene appeared better and she took a shower. She expressed that she doesn't think that the admission was warranted She reported having intrusive thoughts about hurting the baby but said that she's been having these type of thoughts (toward other people) many times in her life and that she had never acted on them. She said that she would never hurt her son and that she knows how to ignore the thoughts. She reported that she receives services from [facility]. She signed a AMBIKA for [facility]. She has an open case with [facility] and CW is Gabriel Gould. Date Signed: 04/12/2018 08:10 AM Electronically Signed By:Ev Serrato
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
--- NOTE | 2018-04-12 13:35 | BCON ---
[f rep ] BEHAVIORAL HEALTH CONSULTATION INTERNAL MEDICINE CONSULTATION DATE OF CONSULTATION: 04/12/2018 REFERRING PHYSICIAN: Dr. Ruiz REASON FOR REFERRAL: Medical clearance for inpatient behavioral health stay. HISTORY OF PRESENT ILLNESS: This patient was sent from her primary care clinic after she had expressed homicidal ideation towards her 3-week-old son. She was evaluated by the mental health team and admitted for further psychiatric care. She complains of fatigue and she also says she has hip and abdominal pain. PAST MEDICAL HISTORY: 1. Asthma. 2. G1, P1 with childbirth approximately 3 weeks ago. PAST SURGICAL HISTORY: She has not had any surgeries. MEDICATIONS: Prior to admission: 1. Citalopram which was recently prescribed in the past week or 2. 2. vitamin daily. 3. Ibuprofen 600 mg p.o. q.6 hours p.r.n. 4. Docusate sodium 100 mg b.i.d. p.r.n. 5. Acetaminophen 600 mg p.o. q.4 hours p.r.n. ALLERGIES: There are no known drug allergies. SOCIAL HISTORY: She is unemployed. She lives in an with her common-law . She is a regular marijuana user. She is a nonsmoker. She has a history of methamphetamine abuse. She has worked in the past in fast food. She denies snoring. FAMILY HISTORY: Noncontributory. REVIEW OF SYSTEMS: Other than as in HPI, a 10-point review of system is negative. She reports that her pain is in her hips and occasionally in her abdomen and that it responds to ibuprofen. PHYSICAL EXAM: VITAL SIGNS: Blood pressure is 116/85, heart rate is 70, respiratory rate is 16, oxygen saturation is 95% on room air, temperature is 36.6 degrees centigrade. GENERAL: This is an obese woman, sitting at a table eating lunch, dressed in street clothes, cooperative, and in no acute distress. HEENT: Extraocular movements are intact. Pupils are equal, round, and reactive to light. Mucous membranes are moist. Dentition is in good condition. She has a crowded airway, Mallampati class 3. NECK: Supple. HEART : There is a regular rate and rhythm with no murmurs, rubs, or gallops. LUNGS : Clear to auscultation bilaterally. ABDOMEN: Obese and benign. EXTREMITIES : There is no cyanosis, clubbing, or edema. NEUROLOGIC: She is alert and oriented x3. Cranial nerves 2 through 12 are grossly intact. There is no focal weakness, and sensation is intact to light touch. LABORATORY STUDIES: Drawn in the emergency department. CBC reveals an elevated platelet count at 474 and otherwise was within normal limits. Serum chemistry revealed a low sodium at 131. She had an elevated BUN at 24. Otherwise, renal function and electrolytes were normal. Hemoglobin A1c was 5.6. Liver function tests were normal but for a slightly elevated alkaline phosphatase at 134 with the upper limit of normal being 126. Lipid panel revealed an elevated cholesterol at 209 and an LDL elevated at 136, HDL was normal at 53. Beta hCG was negative for . Toxicology screen in the urine was non-negative for marijuana and was otherwise negative for substances of abuse. ASSESSMENT AND RECOMMENDATIONS: 1. Mental health issues. Pending further evaluation and management per Psychiatry and the mental health team. 2. Obesity. She was advised on dietary compliance and increased exercise. 3. History of asthma. She reports this has not been active for several months and she has an inhaler which she rarely uses. No need for treatment at present. 4. Hyponatremia in the period. Raises the question of Cosmo syndrome. I do not have information regarding whether there was significant hemorrhage. I have ordered a repeat basic metabolic profile for the morning. If she continues to have hyponatremia, it would be appropriate to add on a serum cortisol, as well as TSH and possibly FSH and LH, to evaluate the hypothalamic/pituitary axis, as well as to evaluate for other causes.. 5. Dyslipidemia. Given her age, there is no indication to consider treatment at present. It would be in her interest to increase her exercise and lose weight. Psychiatry might take this into account in terms of medications which could cause further weight gain. I see no medical contraindications to this patient's continued stay on the inpatient behavioral health unit or to any psychiatric medications or procedures. Thank you very much for including me in the care of this patient and please do not hesitate to contact me or the hospitalist service should there be need for further medical evaluation. /[id number]/MODL MTDD
[2018-04-13 06:35] VITALS: BP 124/87
--- NOTE | 2018-04-13 06:48 | ASMTCMCOM ---
CM Note CM Note Notes: CC checked in with ct. She reported that she is doing fine. Ct. reported that her and son visited her last night. She said that it was a good visit. She denied HI and/or intrusive thought during the visit and while at the hospital. A family meeting with is scheduled for today at noon with possible discharge afterward. Date Signed: 04/13/2018 06:47 AM Electronically Signed By:Ev Serrato
[2018-04-13] MEDS: IBUPROFEN 600 MG TAB PO PRN (08:15)
--- NOTE | 2018-04-13 11:59 | BDS ---
[f rep st] BEHAVIORAL HEALTH DISCHARGE SUMMARY REASON FOR ADMISSION: From the ED note dated 04/11/2018, the patient arrived to the emergency department by ambulance on a hold after endorsing homicidal ideation toward her 3-week-old child. The patient denied attempting to harm the child. The patient was admitted involuntarily and on an M1 hold due to being a danger to others. The patient was admitted for safety, crisis stabilization, and medication management. ADMITTING DIAGNOSIS: Adjustment disorder with mixed disturbance of emotions and conduct. ADMISSION PHYSICAL EXAM: The patient was seen on 04/12/2018, for history and physical consultation for medical clearance for inpatient psychiatric hospitalization and treatment. Patient was medically cleared for inpatient psychiatric hospitalization and treatment. For further details, please refer to consultation document dated 04/12/2018. ADMISSION LABS: 1. CBC within normal limits except platelet count was elevated at 474, lymphocytes were elevated at 46.9, absolute lymphocytes were elevated at 3.87 and absolute eosinophils were elevated at 0.46. 2. BMP within normal limits except sodium was low at 131 and BUN was elevated at 24. 3. Hemoglobin A1c 5.6 and within normal limits. 4. Liver function within normal limits except alkaline phosphatase was elevated at 134. 5. Lipid panel within normal limits except cholesterol was elevated at 209, LDL cholesterol calculated was elevated at 136, and non-HDL cholesterol was elevated at 156. 6. Beta HCG qualitative test was negative. 7. Specimen hemolysis was 346 with results of gross hemolysis. 8. Toxicology screen was non-negative for THC, negative for all other substances screened and negative for ethyl alcohol. MAJOR PROCEDURES OR TESTS: None. HOSPITAL COURSE: The most prominent symptoms and behaviors while the patient was here, were reports of moderate anxiety. Treatment modalities utilized were milieu and group therapy. Patient has improved considerably with no signs of psychiatric symptoms and no psychiatric symptoms expressed. Patient reports she has improved since admission, states to be in stable condition, feels safe to discharge, and she contracts for safety. Patients response to treatment was good. There were no adverse or unexpected results of treatment. The patient was safe throughout stay, active in treatment, engaged in groups, and was appropriate with staff. Patient met with treatment team prior to discharge to assess readiness to discharge and review discharge plan. The treatment team consensus is the patient in stable condition, has a safe discharge plan, and is ready to discharge today. CONDITION ON DISCHARGE: Patient is in stable condition and is no longer a danger to self or others, and is not gravely disabled due to mental illness. Patient is no longer in need of inpatient level of care, and can be safely and effectively treated within the community. The patients level of risk at time of discharge is low. MSE: The patient is casually dressed and with good hygiene , and looks stated age. Patient is sitting, posture is upright, and position is relaxed. Patient appears awake, alert, and responds appropriately and reasonably during interview. Patient is engaged, relates well to interviewer, and emotional facial expression is appropriate to situation and changes appropriately with topic. Patient is cooperative, makes comfortable eye contact , and movements are voluntary, deliberate, coordinated, and smooth and even with no inappropriate movements. Patient makes laryngeal sounds effortlessly and shares conversation appropriately; pace of conversation is appropriate, and stream of talking is fluent; articulation is clear and understandable; word choice is effortless and appropriate for education level; completes sentences, occasionally pausing to think; rate and volume are appropriate for interview and setting. Patient reports mood as euthymic. Patients affect is stable with full variable range, congruent with mood, and appropriate to speech and circumstances. Patient has linear and logical thinking, with no loose associations, tangential thought, thought blocking, concrete thinking, or any other signs of formal thought disorder. Patient denies suicidal and homicidal ideation, and denies hallucinations and delusions. Patient appears to be a reliable historian with sound judgement and good insight into current condition. Patient has no apparent dysfunction in recent or remote memory noted , and no evidence of gross cognitive dysfunction noted at any point during the interview. DISCHARGE DIAGNOSIS: Adjustment disorder with mixed disturbance of emotions and conduct. CURRENT MEDICATIONS: After reviewing options, risks, and benefits with the patient, the patient agrees to continue: 1. vitamin 1 daily. 2. Ibuprofen 600 mg p.o. q.6 hours p.r.n. 3. Colace 100 mg p.o. b.i.d. The patient to follow up with her outpatient primary care provider for ongoing medication evaluation and management. DISPOSITION: The patient left hospital independently and voluntarily with her after meeting with this [employer]ING [employer]ER and childcare center director for family meeting and plans to return home with her . FOLLOWUP: patient coordinator reports the appropriate outpatient follow-up services have been established and outpatient appointments have been scheduled. The patient received written instructions with times and dates of outpatient follow-up appointments. The following follow-up recommendations were provided to the patient at discharge: Continue psychotropic medications as prescribed and attend appointments as scheduled. Report any side effects to a psychiatric outpatient provider, a primary care provider, or other health pulmonary care nurse. Address any questions or problems concerning the psychotropic medications with a psychiatric outpatient provider, a primary care provider, or other health pulmonary care nurse. Contact [facility] or [facility], or go to the nearest emergency room, if you are ever a danger to yourself/others, or unable to care for yourself. As soon as possible, establish a routine medication management treatment with a psychiatric provider, establish routine therapy appointments, and follow-up with a primary care provider. LEGAL COURSE: The patient was admitted on an M1 hold for involuntary psychiatric hospitalization. Patient discharged today independently and voluntarily. ATTITUDE AT TIME OF DISCHARGE: The patients attitude was positive at time of discharge, and patient reports looking forward to discharging today. The patient reports she feels safe to discharge, is no longer a danger to herself or others, is in stable condition, and contracts for safety. Patient states she will continue medications as prescribed, and establish medication management treatment with an outpatient provider after discharge. Patient reports she understands the information that has been provided to her, and she understands, accepts, and agrees to psychotropic medications. Patient describes internal protective factors as the coping skills she has learned while hospitalized here, and she plans to continue to practice these coping skills after discharge. Patient reports external protective factors as and son. Patient describes looking forward to seeing her son after discharge. Patient describes future plans as focusing on caring for her son. FAMILY MEETING: This EARRING MA[employer]ER and childcare center director, at patients request, met with patient and patients at time of discharge to assess readiness to discharge and review discharge plan. Meeting consensus is patient is safe to discharge today and has a safe discharge plan. LABS AND STUDIES: There were no pending labs or studies at time of discharge. ADVANCE DIRECTIVES: There were no advance directives on file, and patient was full code during this hospitalization. The following psychotropic medication treatment informed consent and recommendations were provided to the patient at time of discharge. Patient reports she understands, accepts, and agrees to the information that has been provided. PSYCHOTROPIC MEDICATION TREATMENT INFORMED CONSENT and RECOMMENDATIONS: Review nature of condition, diagnosis, and prognosis. Review nature and purpose of psychotropic medication treatment. Review type of psychotropic medications being prescribed. Review risk and benefits of psychotropic medication treatment. Review probable length of time will need to take medications. Review risk and benefits of not undergoing psychotropic medication treatment. Review alternative treatments to psychotropic medications. Review psychotropic medications contraindications, side effects, and importance of reporting any side effects to a psychiatric provider, primary care provider, or other health pulmonary care nurse. Review importance of her asking a psychiatric provider or primary care provider any questions or problems concerning the psychotropic medications. Review importance of reporting to a psychiatric provider, primary care provider, or other health pulmonary care nurse if she plans to or becomes . Review safety plan and the importance to contact [facility] or [facility] , or go to the nearest emergency room, if ever a danger to yourself/others, or unable to care for yourself. Recommend upon discharge to establish routine medication management treatment with a psychiatric provider, establish routine therapy appointments, and follow-up with a primary care provider. Verify patient understands, accepts, and agrees to the information that has been provided. /[id number]/MODL MTDD
--- NOTE | 2018-04-13 12:34 | ASMTCMCOM ---
CM Note CM Note Notes: of ct. came to participate in a family meeting ahead of ct.'s discharge. Discussed baby's safety concerns and HOC reported that he is going to be with ct. and monitor her actions. Ct. denied any intrusive thought, SI/HI. CC Made sure that both ct. and know who to call if there are any concerns or pending crisis. Ct. and both appear familiar with the resources and reported that they will take action if there are any issues. Ct. has an appointment with her CIP therapist on Mon. She is also scheduled for registration at [facility] that day. Date Signed: 04/13/2018 12:33 PM Electronically Signed By:Ev Serrato
== END 2018-04-13 12:55 | disposition home or self-care (01) | DRG 882 ==
LOC: EDUNIT# → BBEH 23:48
PROVIDERS: ADMIT Psychiatry & Neurology Psychiatry; ATTEND Registered Nurse
DX: F43.25 Adjustment disorder with mixed disturbance of emotions and conduct (principal); J45.909 Unspecified asthma, uncomplicated; F12.20 Cannabis dependence, uncomplicated; E66.9 Obesity, unspecified; E78.5 Hyperlipidemia, unspecified; Z59.0 Homelessness
CPT/HCPCS: 80305